=== PATIENT | female | born 1930 | race Caucasian/White ===

== ENCOUNTER 2017-10-27 20:43 | Inpatient (IN) | payer MEDICARE ==
[2017-10-28] MEDS ORDERED: HYDROcodone/Acetaminophen 10/325 mg Tablet PO PRN (00:59)
[2017-10-28] MEDS ORDERED: Gabapentin 400 MG CAP PO SCH (01:00)
[2017-10-28] MEDS ORDERED: Mag-Al 1200 mg/1200 mg/30 ML UDCUP PO PRN (08:15)
[2017-10-28] MEDS ORDERED: Ondansetron HCl/PF 4 MG/2 ML Vial IVP PRN ×2 (08:15→19:06)
[2017-10-28] MEDS ORDERED: Calcium Carbonate 500 MG ChewTAB PO PRN (08:15)
[2017-10-28] MEDS ORDERED: Bisacodyl 10 MG SUPP PR PRN (08:15)
[2017-10-28] MEDS ORDERED: Nitroglycerin 0.4 MG TAB (25 Tab Bottle) SL PRN (08:15)
[2017-10-28] MEDS ORDERED: Loratadine 10 MG TAB PO PRN (08:15)
[2017-10-28] MEDS ORDERED: Diabetic Tussin 200 MG/10 ML UDCUP PO PRN (08:15)
[2017-10-28] MEDS ORDERED: Senokot 8.6 MG TAB PO PRN ×2 (08:15)
[2017-10-28] MEDS ORDERED: Acetaminophen 325 MG TAB PO PRN (08:15)
[2017-10-28] MEDS ORDERED: Bisacodyl 5 MG TAB PO PRN ×2 (08:15)
[2017-10-28] MEDS ORDERED: Benzonatate 100 MG CAP PO PRN (08:15)
[2017-10-28] MEDS ORDERED: Sodium Chloride 0.9% 1,000 ML IV SCH (08:15)
[2017-10-28] MEDS ORDERED: Dextrose 5% in Water 1,000 ML IV PRN (08:19)
[2017-10-28] MEDS ORDERED: HumaLOG 300 UNITS/3 ML VIAL SC PRN ×2 (08:19)
[2017-10-28] MEDS ORDERED: Dextrose 50% Abboject 50 ML SYRINGE SLOW IVP PRN (08:19)
[2017-10-28 08:43] LABS: #Eosinphils 0.4 thou/uL (0.0-0.7); #Monocytes 0.7 thou/uL (0.11-0.59); #Neutrophils 2.3 thou/uL (1.40-6.50); %Basophils 0.8 % (0.0-1.0); %Eosinophils 6.5 % (0.0-10.0); %Lymphocytes 36.8 % (21.0-51.0); %Monocytes 13.1 % (0.0-10.0); %Neutrophils 42.8 % (42.0-75.0); Hemoglobin 11.3 g/dL (12.0-16.0); Mean Corpuscular HGB CONC 35.1 g/dL (32.0-36.0); Mean Corpuscular Hemoglobin 32.1 pg (27.0-31.0); Mean Corpuscular Volume 91.6 fL (78.0-98.0); Mean Platelet Volume 6.1 fL (7.4-10.4); Platelet Count 296 thou/uL (130-400); RBC Distribution Width 12.1 % (11.5-14.5); Red Blood Cell (RBC) Count 3.53 mill/uL (4.20-5.40); White Blood Cell (WBC) Count 5.4 thou/uL (4.8-10.8)
[2017-10-28] MEDS ORDERED: Non-Formulary Item 1 EACH (Gabapentin [Neurontin] 800 MG) PO SCH (09:00)
[2017-10-28] MEDS ORDERED: Famotidine/PF 20 mg/2ml Vial SLOW IVP SCH (09:00)
[2017-10-28 09:03] LABS: ALT (SGPT) 7 U/L (8-55); AST (SGOT) 12 U/L (5-34); Albumin 3.8 g/dL (3.4-4.8); Alkaline Phosphatase 45 U/L (40-150); Anion Gap 12 mmol/L (10-20); BUN (Urea Nitrogen) 9 mg/dL (9.8-20.1); Bilirubin, Total 0.6 mg/dL (0.2-1.2); Calc. Creatinine Clearance 61 mL/min (70-130); Calcium 8.6 mg/dL (7.8-10.44); Carbon Dioxide 27 mmol/L (23-31); Chloride 94 mmol/L (98-107); Estimated GFR-MDRD 75; Glucose 107 mg/dL (83-110); Lipase 10 U/L (8-78); Phosphorus 2.9 mg/dL (2.3-4.7); Potassium 4.1 mmol/L (3.5-5.1); Protein, Total 5.8 g/dL (6.0-8.3); Sodium 129 mmol/L (136-145)
[2017-10-28] MEDS ORDERED: Ketorolac Tromethamine 30 MG/ML VIAL IVP SCH (10:00)
--- NOTE | 2017-10-28 10:07 | HP ---
HISTORY OF PRESENT ILLNESS: Carolyn Desouza is an 86-year-old female, who lives independently in [facility], ambulates with a cane or walker about the house. She does have a history of sciatica. She has known that she has gallstones for many years, diagnosed during a workup of kidney problems in 2005. The patient has had intermittent pains, right upper quadrant; interscapular radiation for many years . She took a fall yesterday, was seen in [place], had a CAT scan of the abdomen and pelvis, because of tenderness in right upper quadrant, noting 2.4 cm dilated common bile duct with multiple gallston es. CT scan of the head was obtained, because of her fall, and her CAT scan of the head was normal. The patient is transferred for evaluation and admitted. She is noted to be hyponatremic, serum sodi um improved from 121 to 129. MEDICATIONS: Boniva once a month 150 mg, ProAir inhalation as needed, atenolol 50 mg a day, gabapent in 800 mg 3 times a day, hydrochlorothiazide 25 mg a day, lisinopril 40 mg a day, metformin 500 mg tw ice daily, omeprazole 20 mg once a day. PAST MEDICAL HISTORY: Hypertension; hyperlipidemia; low back pain, sciatica. PAST SURGICAL HISTORY: Appendectomy, uterine suspension, , partial hysterectomy without oop horectomy. She is up-to-date on her colonoscopies. FAMILY HISTORY: Noncontributory. SOCIAL HISTORY: [place] noncontributory. PHYSICAL EXAMINATION: VITAL SIGNS: Height 5 feet 7 inches, 151 pounds, 23 BMI. HEAD, EARS, EYES, NOSE, AND THROAT: Unremarkable. LUNGS: Clear to auscultation. CARDIAC: Regular rate and rhythm without murmur, rub, or gallop. ABDOMEN: Soft, tenderness in right upper quadrant with guarding. EXTREMITIES: Unremarkable. NEUROLOGICAL: Intact. No focal deficits. LYMPH: No lymphadenopathy in neck, groin, axillae, breast without masses. Palpable pedal pulses. N o ankle edema. LABORATORY DATA: Sodium 129, potassium 4.1, BUN 9, creatinine 0.74. Liver function tests are normal . Lipase is normal. White count 5, hemoglobin 9.3. ASSESSMENT AND PLAN: 1. Cholecystitis and cholelithiasis. I have recommended laparoscopic video cholecystectomy, cholang iograms, possible ERCP. Her liver function tests are normal. Common bile duct dilated. We will con urvashit Dr. Ishan Blunt in case ERCP is necessary. Risk of infection, bleeding, reoperation, open proc edure discussed. Risk of ERCP including pancreatitis, perforation, bleeding discussed. Questions an swered. 2. Hypertension. 3. Sciatica, chronic low back pain.
[2017-10-28] MEDS ORDERED: Acetaminophen 1,000 MG in Premix Bag 1 BAG IVPB SCH (10:15)
[2017-10-28] MEDS: Gabapentin 400 MG CAP PO SCH ×3 (10:16→20:19)
[2017-10-28] MEDS: Sodium Chloride 0.9% 1,000 ML IV SCH ×3 (10:31→20:20)
[2017-10-28 10:52] LABS: Bilirubin Negative (Negative); Blood, Urine Negative (Negative); Clarity CLEAR (Clear); Glucose, Urine (Dipstick) Negative (Negative); Leukocyte Negative (Negative); Nitrite Negative (Negative); Protein, Urine (Dipstick) Negative (Neg-Trace); Specific Gravity, Urine 1.008 (1.002-1.036); Urobilinogen 0.2 mg/dL (0.2-1.0); pH, Urine 7.5 (5.0-9.0)
[2017-10-28 10:58] LABS: Bacteria/HPF None Seen HPF (None Seen); Hyaline Casts/LPF 0-3 HYALINE CAST LPF (0-3 Hyaline); RBC/HPF 0-3 HPF (0-3); Squamous Epithelial None Seen HPF (0-3); WBC/HPF 0-3 HPF (0-3)
[2017-10-28] MEDS: Ipratropium Bromide 2.5 ml Neb NEB SCH ×2 (11:23→18:37)
--- NOTE | 2017-10-28 12:35 | HP ---
DATE OF ADMISSION: 10/28/2017 PRIMARY CARE PHYSICIAN: Out of town. CHIEF COMPLAINT: Fall. HISTORY OF PRESENT ILLNESS: Ms. Desouza is a very pleasant 86-year-old female without any significa nt past medical history, who presented to the emergency room after she has sustained a fall. She was brought in by EMS. History is mainly obtained by the patient herself and electronic medical records have been reviewed. She reports that she lives alone and is normally self-sufficient and uses a walker or cane sometimes to walk around. She, however, fell outside her house when trying to go back in. She did not lose an y consciousness. This was a purely mechanical fall. She denies any prodromal symptoms prior to the fall. She was on the ground for about 10 minutes as her medical alert device does not work very well outside the house. Neighbors found her and EMS was called and she was brought to the emergency room . Upon presentation, she was somewhat hypertensive with blood pressure 185/106. Otherwise, hemodynamic ally stable. She underwent general evaluation after a fall including radiological studies including a CT scan of the brain, which was unremarkable. A CT scan of the abdomen and pelvis was also done wi th contrast, which showed contracted gallbladder with sludge and stones with duct dilatation up to 2. 4 cm as well as choledocholithiasis. Her sodium was low at 121 and potassium of 4.3. All of this wo rkup was done at [facility]. She was transferred to our facility for further workup and care. Dr. Caldwell from General Surgery has been consulted by the emergency room physician for possib le cholecystectomy, and he has already evaluated the patient and she is scheduled to undergo surgery today. Her repeat sodium at our facility this morning is 129. Internal Medicine team has been grady d to admit this patient. PAST MEDICAL HISTORY: 1. Diabetes mellitus. 2. Hypertension. 3. Dyslipidemia. PAST SURGICAL HISTORY: section, hysterectomy. PSYCHIATRIC HISTORY: No anxiety, no depression. SOCIAL HISTORY: She lives by herself, but her family is involved in her care. She is independent wi th her ADLs and IADLs. No history of drug, tobacco, or alcohol abuse. FAMILY HISTORY: No significant family history of premature coronary artery disease or stroke. ALLERGIES: No known medication allergies. CURRENT MEDICATIONS: As follows, Boniva 150 mg every month, lisinopril 40 mg daily, omeprazole 20 mg daily. Incruse Ellipta 1 inhalation daily, metformin 500 mg p.o. b.i.d., hydrochlorothiazide 25 mg daily, [place] as needed, gabapentin 800 mg p.o. t.i.d., and Tenormin 50 mg daily. CODE STATUS: FULL CODE, discussed with the patient as well as her family present in the room. REVIEW OF SYSTEMS: A 12-point review of systems is done and is negative except for those mentioned i n the history and physical. LABORATORY EXAMINATION: Her CBC shows WBCs 5.4, hemoglobin 11.3, platelet count 296. Serum chemistr ies unremarkable except for sodium low at 129, chloride 94, otherwise unremarkable. Lipase is normal . Liver enzymes normal. Blood sugar 116. Urinalysis is negative for any leukocyte esterase, WBCs, protein, or glucose. Urinary specific gravity 1.008. PHYSICAL EXAMINATION: VITAL SIGNS: Most recent vital signs, temperature 98.3, pulse of 63, respirations 24, saturating 97% on 2 liters nasal cannula, blood pressure 151/68. GENERAL: In no acute distress, awake, alert, oriented x3, lying comfortably in bed, very pleasant. HEENT EXAMINATION: Mucous membranes are slightly dry. No oropharyngeal exudate or erythema. Head i s normocephalic, atraumatic. Pupils are equal, reactive to light and accommodation. Extraocular mov ement intact. NECK: Supple without any lymphadenopathy, JVD, or bruit. CHEST: Clear to auscultation without any wheezing, rales, or rhonchi. Rate and rhythm is regular wi thout any murmurs, rubs, or gallops. ABDOMEN: Soft, nontender, nondistended with positive bowel sounds, no hepatosplenomegaly. No right upper quadrant tenderness. EXTREMITIES: Free of any cyanosis, clubbing, or edema. NEUROLOGICAL EXAMINATION: Nonfocal. SKIN: Free of any rashes or bruises. Feel warm and dry to touch. PSYCHIATRIC: Normal affect. IMPRESSION AND PLAN: 1. Hyponatremia. This is likely secondary to hydrochlorothiazide, associated with mild dehydration. We will hold hydrochlorothiazide and resuscitate her with gentle IV fluids. We will repeat the lev el of the sodium later in the day and monitor for correction of 10 mg in 24 hours. 2. Choledocholithiasis. The patient has been scheduled to undergo laparoscopic cholecystectomy with possible ERCP. Dr. Caldwell has consulted Gastroenterology, Dr. Blunt, for the same reason. 3. Possible cholecystitis as per Dr. Caldwell. She will be started on empiric antibiotics. 4. History of hypertension. We will restart her home medications of atenolol and lisinopril at this time. Hold hydrochlorothiazide as above. 5. Diabetes mellitus, type 2, non-insulin dependent. We will hold the metformin, as she is n.p.o. t o avoid any renal failure or acidosis. We will treat her with insulin sliding scale with frequent Ac cu-Cheks. 6. Code status: FULL CODE, discussed with the patient. DISPOSITION: Ms. Desouza is currently being admitted to the hospital for hyponatremia and incidenta l finding of choledocholithiasis. Further management will depend upon her clinical course. She is c urrently on observation status.
[2017-10-28 14:15] LABS: Sodium 128 mmol/L (136-145)
[2017-10-28] MEDS ORDERED: PROPOFOL 200 MG/20 ML VIAL ONE (15:00)
[2017-10-28] MEDS ORDERED: Lidocaine 1% PF 5 ML VIAL ONE (15:00)
[2017-10-28] MEDS ORDERED: Ondansetron HCl/PF 4 MG/2 ML Vial ONE (15:00)
[2017-10-28] MEDS ORDERED: Glycopyrrolate 0.2 MG/ML 5 ML SYRINGE ONE (15:00)
--- NOTE | 2017-10-28 17:15 | RAD ---
FRONTAL VIEW CHEST: COMPARISON: Preoperative evaluation. FINDINGS: The lungs are mildly hyperinflated with interstitial prominence. No lobar consolidation, effusion, o r pneumothorax. The cardiac silhouette is normal in size. There is vascular calcification. An elec tronic lead overlies the thoracic spine. IMPRESSION: Chronic obstructive pulmonary disease. POS: [facility]
[2017-10-28] MEDS ORDERED: Bupivacaine HCl 0.5%/Epinephrine 1:200,000/PF 30 ml Vial ONE (17:50)
[2017-10-28] MEDS ORDERED: Iothalamate Meglumine 60% 50 ML VIAL FS ONE (17:50)
[2017-10-28] MEDS ORDERED: Fentanyl 100 MCG/2 ML VIAL ONE ×2 (17:54→19:05)
[2017-10-28] MEDS ORDERED: Ondansetron ODT 8 MG TAB PO PRN (18:56)
[2017-10-28] MEDS ORDERED: Acetaminophen 500 MG TAB PO PRN (18:56)
[2017-10-28] MEDS ORDERED: Ondansetron ODT 4 MG TAB PO PRN (18:56)
[2017-10-28] MEDS ORDERED: traMADol HCl 50 MG TAB PO PRN (18:56)
[2017-10-28] MEDS ORDERED: Promethazine HCl 25 MG/ML VIAL IM PRN (19:06)
[2017-10-28] MEDS ORDERED: Morphine Sulfate 2 MG/ML SYRINGE SLOW IVP PRN (19:06)
[2017-10-28] MEDS ORDERED: Promethazine HCl 25 MG/ML VIAL SLOW IVP PRN (19:06)
[2017-10-28] MEDS ORDERED: Indomethacin 50 MG SUPP PR SCH (19:45)
--- NOTE | 2017-10-28 20:16 | RAD ---
INTRAOPERATIVE CHOLANGIOGRAM THREE VIEWS: 10/28/2017 HISTORY: An 86-year-old female with biliary obstruction. COMPARISON: No prior ultrasounds, CTs, MRIs, or KUBs. FINDINGS: One of the images is a nondiagnostic image, centered over the thoracolumbar junction. The other two images demonstrate contrast injection into the cystic duct stump, demonstrating very severe dilation of the common bile duct and common hepatic duct, and moderate dilation of biliary radicles. There is an oval filling defect at the inferior aspect of the common bile duct, inferior to which there is a thin, short, contrast filled lumen representing the ampulla, distal to which there is contrast materi al in the duodenum. IMPRESSION: Biliary obstruction at the inferior aspect of the common bile duct, very close to the ampulla of Vate r, by a filling defect, which is presumed to represent choledocholithiasis, resulting in very severe dilation of the common bile duct and the common hepatic duct. POS: [facility]
[2017-10-28] MEDS: Famotidine 20 MG TAB PO SCH (20:19)
[2017-10-28] MEDS: Enoxaparin Sodium 40 MG/0.4 ML SYRINGE SC SCH (20:19)
--- NOTE | 2017-10-28 20:40 | CON ---
DATE OF CONSULTATION: 10/28/2017 REASON FOR CONSULTATION: Abnormal GI imaging. CONSULTING PHYSICIAN: Dr. Julio Caldwell. HISTORY OF PRESENT ILLNESS: The patient is an 86-year-old female with past medical history of hypert ension, hyperlipidemia, chronic lower back pain and sciatica, presenting with complaints of right upp er quadrant abdominal pain. She states that she was in her usual state of health until earlier today when she sustained a fall outside her house that prompted her to call EMS and medical evaluation in the [place] [facility]. During the evaluation in the ER, she had a CT scan of the abdomen and pelvis whic h showed a contracted gallbladder with stones and sludge as well as significant common bile duct dila tion up to 2.4 cm as well as choledocholithiasis (this was done at the [facility]). She was subsequently transferred to [facility] for further evaluation. Upon interviewing the p atient today, she said that she had been having intermittent right upper quadrant abdominal pain that has been present for the last 2-3 months. The pain was characterized as sharp/"not like" in nature, was nonradiating, intermittent and would reach a severity of 4/10. The abdominal pain that she had would be made worse with not having a bowel movement, better with actually having a bowel movement. When she did suffer the pain, it would happen around 2 times per month and lasts for anywhere between 2-24 hours in duration. She also endorses one solid bowel movement every 4-5 days for which she rou tinely takes Milk of Magnesia to facilitate having a bowel movement. When she does have a bowel move ment, it does require intermittent straining as well as pressure to the abdomen to facilitate defecat ion. Currently, she denies any nausea, vomiting, fevers, chills, shortness of breath, abdominal pain , dysphagia, odynophagia, jaundice or GI bleeding. Of note, she states that she was evaluated in 2005 at both [facility] and [facility] in [place], [place], in relation to "pancreas problems and enlarged tubing system." At that time, she s aid that she underwent both upper endoscopy as well as possible endoscopic ultrasound in relation to these findings. She cannot remember the results of these findings, but it was recommended that she r epeat her imaging every 1-2 years. REVIEW OF SYSTEMS: A 10-category review of systems was obtained with all responses negative except f or the pertinent positives as listed in the HPI. PAST MEDICAL HISTORY: As per HPI. PAST SURGICAL HISTORY: section, hysterectomy, appendectomy, uterine suspension. FAMILY HISTORY: Denies any GI malignancies. SOCIAL HISTORY: Denies any tobacco, alcohol or illicit drug use. OUTPATIENT MEDICATIONS: Reviewed. ALLERGIES: No known drug allergies. PHYSICAL EXAMINATION: VITAL SIGNS: Temperature 97.5, pulse 67, blood pressure 150/72, respiratory rate 24, satting 94% on 2 liters nasal cannula. GENERAL: The patient is lying in bed, in no acute distress. Alert and oriented x4. NECK: Supple. No JVD noted. CARDIOVASCULAR: Regular rate and rhythm with no discernible murmurs, gallops or rubs. RESPIRATORY: Clear to auscultation bilaterally with no discernible wheezes or rales. ABDOMEN: Normoactive bowel sounds, soft, nondistended. Tenderness to palpation in the right upper q uadrant. EXTREMITIES: No cyanosis, clubbing or edema. LABORATORY DATA: CBC with a white blood cell count of 5.4, hemoglobin 11.3, hematocrit 32.3, platele ts 296. Chemistry with a sodium of 129, potassium 4.1, chloride 94, CO2 of 27, BUN 9, creatinine 0.7 4, glucose 107, AST 12, ALT 7, alkaline phosphatase 45, total bilirubin 0.6, albumin 3.8, lipase 10. IMAGING DATA: CT of the abdomen and pelvis obtained today in [place], [place], showed moderate intra and extrahepatic ductal dilatation with the extrahepatic duct measuring 2.4 cm and multiple common du ct stones representing choledocholithiasis. ASSESSMENT AND PLAN: The patient is an 86-year-old female with past medical history of hypertension, hyperlipidemia, chronic lower back pain, diabetes, sciatica and possible enlarged common bile duct i n the past, presenting with right upper quadrant abdominal pain and findings concerning for choledoch olithiasis. Choledocholithiasis: The patient is presenting with a history of intermittent right upper quadrant a bdominal pain that has been present for the last 2-3 months, characterized as a sharp stabbing type s ensation. The pain was worse with not having a bowel movement and better with having a bowel movemen t. Upon evaluation in the ER earlier today, imaging is showing the presence of a 2.4 cm ductal dilat ion of the common bile duct concerning for obstruction and choledocholithiasis, which was also reflec elieser on the imaging. However, her labs are not currently reflective of an obstructive type process no r is her clinical status indicative of this diagnosis either. Upon further interview with the patien bibi, she also endorses that she has had multiple endoscopies in the past as part of a workup related to a pancreatic origin or enlarged tubing system in 2005 at [facility] in [place] and [facility] in [place]. At this point, the differential could include choledocholithiasis, choledochal c yst, cholangiocarcinoma, anatomical variant and/or extra biliary malignancy such as a pancreatic neop lasm (much less likely). RECOMMENDATIONS: 1. We would obtain records from both [facility] and [facility] for review o f records pertaining to prior endoscopic evaluation of the pancreas and the biliary system at that ti ca. 2. We would have the patient proceed with laparoscopic cholecystectomy given the presence of cholecy stitis and numerous gallstones with intraoperative cholangiogram to confirm the presence of choledoch olithiasis. 3. If the patient is confirmed to have choledocholithiasis, we would plan for ERCP tomorrow for mike rebeca of the ductal stones. 4. Agree with broad spectrum antibiotics for treatment of possible choledocholithiasis. We will continue to follow. Please call with any additional questions.
[2017-10-29] MEDS: traMADol HCl 50 MG TAB PO PRN ×2 (00:01→04:54)
--- NOTE | 2017-10-29 00:10 | OP ---
DATE OF PROCEDURE: 10/28/2017 PREOPERATIVE DIAGNOSES: Choledocholithiasis, cholecystitis, cholelithiasis. POSTOPERATIVE DIAGNOSES: Choledocholithiasis, cholecystitis, cholelithiasis. PROCEDURE: Laparoscopic video cholecystectomy. SURGEON: Julio Caldwell MD ANESTHESIA: General. Local 0.5% Marcaine with epinephrine, 30 mL total volume used. Note, common b ile duct 2.4 cm diameter. Normal liver function test. History of biliary colic. PROCEDURE IN DETAIL: Patient was taken to the operating room under general anesthesia, abdomen was p repared with ChloraPrep, draped in routine fashion. Local anesthetic infiltrated into the skin and s ubcutaneous tissue about each port site. Infraumbilical incision was made. Pneumoperitoneum to 15 m mHg obtained with Veress needle, placing with a 5 port and video laparoscope inserted. Right subxiph oid incision was made and a 11 port placed. Right subcostal incision was made and 5 mm ports p laced. Fundus of gallbladder grasped at cephalad. Liver appeared to be normal. dissected tino e. Critical view obtained. Cystic artery double clipped proximally and cystic ducts then clipped on the gallbladder side. An opening made in the cystic duct and cholangiogram was obtained using fluor oscopy revealing markedly dilated common hepatic, common bile ducts with delayed emptying into the du odenum. There were filling defects noted. Eventually, contrast did empty into the duodenum with uche ling defects noted. Cholangiocath removed. Cystic duct stump doubly clipped. Cystic artery and aaron t divided. The gallbladder was dissected free from liver bed obtaining good hemostasis prior to divi daylin of final peritoneal attachments. Gallbladder and contents removed, submitted to Pathology. Goo d hemostasis ensured with cautery and clips. The patient tolerated the procedure well. Pneumoperito neum and irrigant evacuated. All instruments were removed and all skin incisions were approximated w ith interrupted subdermal 4-0 Monocryl and DermaGlue applied.
[2017-10-29] MEDS: Ipratropium Bromide 2.5 ml Neb NEB SCH ×5 (01:22→23:48)
[2017-10-29] MEDS: Sodium Chloride 0.9% 1,000 ML IV SCH ×2 (02:17→11:37)
[2017-10-29] MEDS ORDERED: Simethicone Chewable 80 MG TAB PO PRN (04:14)
[2017-10-29 04:58] VITALS: BMI 25.4
[2017-10-29 05:00] LABS: #Basophils 0.1 thou/uL (0.0-0.2); #Lymphocytes 1.1 thou/uL (1.20-3.40); #Monocytes 0.9 thou/uL (0.11-0.59); #Neutrophils 8.9 thou/uL (1.40-6.50); %Basophils 0.9 % (0.0-1.0); %Eosinophils 0.2 % (0.0-10.0); %Lymphocytes 9.7 % (21.0-51.0); %Monocytes 8.3 % (0.0-10.0); %Neutrophils 80.9 % (42.0-75.0); Hemoglobin 11.8 g/dL (12.0-16.0); Mean Corpuscular HGB CONC 33.8 g/dL (32.0-36.0); Mean Platelet Volume 6.7 fL (7.4-10.4); Platelet Count 299 thou/uL (130-400); Red Blood Cell (RBC) Count 3.81 mill/uL (4.20-5.40)
[2017-10-29 05:22] LABS: ALT (SGPT) 35 U/L (8-55); AST (SGOT) 48 U/L (5-34); Albumin 3.9 g/dL (3.4-4.8); Alkaline Phosphatase 46 U/L (40-150); Anion Gap 15 mmol/L (10-20); BUN (Urea Nitrogen) 8 mg/dL (9.8-20.1); Bilirubin, Total 0.8 mg/dL (0.2-1.2); Calc. Creatinine Clearance 65 mL/min (70-130); Calcium 8.8 mg/dL (7.8-10.44); Carbon Dioxide 24 mmol/L (23-31); Chloride 96 mmol/L (98-107); Estimated GFR-MDRD 80; Globulin 2.2 g/dL (2.4-3.5); Glucose 125 mg/dL (83-110); Potassium 3.8 mmol/L (3.5-5.1); Protein, Total 6.1 g/dL (6.0-8.3); Sodium 131 mmol/L (136-145)
[2017-10-29] MEDS ORDERED: Lidocaine 1% PF 5 ML VIAL ONE (09:28)
[2017-10-29] MEDS ORDERED: PROPOFOL 200 MG/20 ML VIAL ONE (09:28)
[2017-10-29] MEDS ORDERED: PHENYLEPHRINE-NS 100 MCG/ML 10 ML SYRINGE ONE (09:28)
[2017-10-29] MEDS: Gabapentin 400 MG CAP PO SCH ×3 (11:37→21:05)
[2017-10-29] MEDS: Famotidine 20 MG TAB PO SCH ×2 (11:37→21:18)
--- NOTE | 2017-10-29 13:40 | PDOC.PN ---
- Subjective Encounter Start Date: 10/29/17 Encounter Start Time: 13:39 Subjective: severe RUQ pain - Objective Resuscitation Status: Resuscitation Status FULL:Full Resuscitation MAR Reviewed: Yes Vital Signs & Weight: Vital Signs (12 hours) Temp Pulse Resp BP BP Pulse Ox 10/29/17 08:00 98.9 F 81 16 10/29/17 07:31 98.9 F 81 16 156/71 H 91 L 10/29/17 06:43 96 10/29/17 06:41 77 16 96 10/29/17 04:54 98 F 80 20 171/77 H 91 L Weight Weight 152 lb 11.2 oz I&O: 10/28/17 10/29/17 10/30/17 06:59 06:59 06:59 Intake Total 210 200 Balance 210 200 Result Diagrams: 10/29/17 04:23 10/29/17 04:23 Additional Labs: Accuchecks 10/29/17 06:05 POC Glucose 124 H Phys Exam - Physical Examination Neck: no JVD Respiratory: clear to auscultation bilateral Cardiovascular: RRR, no significant murmur tender PUQ, lap candace incision sites, decreased BS Musculoskeletal: no edema Dx/Plan (1) Acute cholecystitis due to biliary calculus Code(s): K80.00 - CALCULUS OF GALLBLADDER W ACUTE CHOLECYST W/O OBSTRUCTION Status: Acute (2) HTN (hypertension) Code(s): I10 - ESSENTIAL (PRIMARY) HYPERTENSION Status: Acute Qualifiers: Hypertension type: essential hypertension Qualified Code(s): I10 - Essential (primary) hypertension (3) Common bile duct calculi Code(s): K80.50 - CALCULUS OF BILE DUCT W/O CHOLANGITIS OR CHOLECYST W/O OBST Status: Acute (4) Hyponatremia Code(s): E87.1 - HYPO-OSMOLALITY AND HYPONATREMIA Status: Acute - Plan iv fluids -: analgesia, morphine iv -: ERCP planned today * .
[2017-10-29] MEDS ORDERED: Fentanyl 100 MCG/2 ML VIAL ONE (15:49)
[2017-10-29] MEDS ORDERED: Iothalamate Meglumine 60% 50 ML VIAL FS ONE (16:04)
[2017-10-29] MEDS ORDERED: Indomethacin 50 MG SUPP ONE (16:04)
[2017-10-29] MEDS ORDERED: Promethazine HCl 25 MG/ML VIAL IM PRN (19:17)
[2017-10-29] MEDS ORDERED: Promethazine HCl 25 MG/ML VIAL SLOW IVP PRN (19:17)
[2017-10-29] MEDS ORDERED: Ondansetron HCl/PF 4 MG/2 ML Vial IVP PRN (19:17)
--- NOTE | 2017-10-29 19:35 | PRG ---
DATE OF SERVICE: 10/29/2017 SUBJECTIVE: Ms. Desouza is doing well today. She has some postoperative pain, mainly right upper q uadrant, morphine has been ordered and she is n.p.o., awaiting ERCP. LABORATORY DATA: This morning reveal white count 11, hemoglobin 11.8. Sodium 131, [address] A [address], ALT essentially normal, bilirubin normal. OBJECTIVE: LUNGS: Clear to auscultation. CARDIAC: Regular rate and rhythm without murmur or gallop. ABDOMEN: Soft, postoperative tenderness. ASSESSMENT AND PLAN: Choledocholithiasis, 2.4 cm bile duct markedly dilated. Await ERCP by Gastroen terology. Advance diet, post procedure.
[2017-10-29] MEDS: Enoxaparin Sodium 40 MG/0.4 ML SYRINGE SC SCH (20:54)
--- NOTE | 2017-10-29 23:21 | OP ---
DATE OF PROCEDURE: 10/29/2017 GI ENDOSCOPY NOTE SURGEONS: 1. Robin Garcia M.D. 2. Ishan Blunt MD CHARTER REPRESENTATIVE SURGEON: None. INDICATION: Choledocholithiasis, based on positive intraoperative cholangiogram. MEDICATIONS: 1. See anesthesia record. 2. Indomethacin 100 mg per rectum. FINDINGS: After discussion of the risks, benefits and alternatives of the procedure, informed consen t was obtained and witnessed. Pre-endoscopic cardiopulmonary examination was satisfactory. Timeout was performed before sedation was achieved. Sedation was achieved with anesthesia assistance in the endoscopy unit. The patient was placed in the semiprone position, intubated and sedated on the fluor oscopy table. A Pentax adult side-viewing duodenoscope was inserted into the mouth and passed beyond the esophagus and stomach and then into the second portion of the duodenum. The ampulla was brought into view with the endoscope in the short position. Using a triple-lumen dome tip sphincterotome an d a 0.035 guidewire, we attempted to selectively cannulate the common bile duct. Cannulation was pete te difficult. At one point, the pancreatic duct was cannulated, a very small amount of contrast dye was injected into the pancreatic duct for localization, and the pancreatic duct was found to be quite tortuous. Eventually, we were able to successfully cannulate the common bile duct and the wire was passed up into the left intrahepatic duct system. Cholangiogram was then performed. This showed a d ilated common bile duct with multiple mobile stones of various sizes within the common bile duct. At this point, a generous biliary sphincterotomy was performed. There was a small amount of bleeding f rom the sphincterotomy site during sphincterotomy, but this had stopped completely by the end of the procedure. We then used a 15-18 mm extraction balloon, we passed it up the common bile duct and mult iple passes were made with the balloon partially and fully inflated. In this fashion, we were able t o extract three large yellow-pigmented gallstones from the common bile duct. After multiple sweeps a nd extraction of the stones, occlusion cholangiogram was performed. Due to the large caliber of the duct, which was greater in diameter even then the 18-mm balloon, we were unable to get great occlusio n cholangiogram images, but certainly there was no perceived residual filling defect within the commo n bile duct. Working apparatus was then completely withdrawn. Postprocedure fluoroscopic images dem onstrated no retroperitoneal or subdiaphragmatic free air. The endoscope was completely withdrawn, a nd the patient allowed to recover. The patient tolerated the procedure well. There were no immediat e post-procedure complications. IMPRESSION: Choledocholithiasis, now status post successful endoscopic retrograde cholangiopancreato graphy with biliary sphincterotomy and balloon extraction of multiple common bile duct stones. RECOMMENDATIONS: 1. Monitor for potential complications including post-ERCP pancreatitis. 2. Liquid diet for tonight, advance diet as tolerated tomorrow if the patient is doing well.
[2017-10-30] MEDS: Sodium Chloride 0.9% 1,000 ML IV SCH ×2 (01:10→11:07)
[2017-10-30] MEDS: Ipratropium Bromide 2.5 ml Neb NEB SCH ×2 (05:57→11:31)
[2017-10-30] MEDS: Gabapentin 400 MG CAP PO SCH (08:16)
[2017-10-30] MEDS: Famotidine 20 MG TAB PO SCH (08:16)
[2017-10-30 08:38] LABS: ALT (SGPT) 27 U/L (8-55); AST (SGOT) 28 U/L (5-34); Albumin 3.7 g/dL (3.4-4.8); Alkaline Phosphatase 46 U/L (40-150); Anion Gap 14 mmol/L (10-20); BUN (Urea Nitrogen) 6 mg/dL (9.8-20.1); Bilirubin, Total 0.7 mg/dL (0.2-1.2); Calc. Creatinine Clearance 69 mL/min (70-130); Carbon Dioxide 22 mmol/L (23-31); Chloride 98 mmol/L (98-107); Estimated GFR-MDRD 85; Globulin 2.1 g/dL (2.4-3.5); Glucose 160 mg/dL (83-110); Potassium 3.2 mmol/L (3.5-5.1); Protein, Total 5.8 g/dL (6.0-8.3); Sodium 131 mmol/L (136-145)
[2017-10-30 11:08] VITALS: BP 121/61; TEMP 98.5
--- NOTE | 2017-10-30 13:22 | PRG ---
DATE OF SERVICE: 10/30/2017 REASON FOR CONSULTATION: Choledocholithiasis. SUBJECTIVE: The patient states that she is doing well this morning with no increased abdominal pain after ERCP yesterday. She does have some mild abdominal tenderness in the right upper quadrant, but feels that this may be more due to the laparoscopic cholecystectomy. Currently, denies any nausea, v omiting, fevers, chills, hematemesis, melena, hematochezia, odynophagia, dysphagia. OBJECTIVE: VITAL SIGNS: Temperature 98.5, pulse 81, blood pressure 121/61, respiratory rate 18, satting 93% on room air. GENERAL: The patient is lying in bed in no acute distress. Alert and oriented x4. CARDIOVASCULAR: Regular rate and rhythm. RESPIRATORY: Clear to auscultation bilaterally. ABDOMEN: Normoactive bowel sounds, soft, nondistended. Mild tenderness to palpation in the right up per quadrant. EXTREMITIES: No cyanosis, clubbing or edema. LABORATORY DATA: Chemistry with a sodium of 131, potassium 3.2, chloride 98, CO2 22, BUN 6, creatini ne 0.66, glucose 160, AST 28, ALT 27, alkaline phosphatase 46, total bilirubin 0.7. IMAGING DATA: ERCP performed on 10/29/2017 showed two yellow appearing stones within the common bile duct measuring approximately 5 and 7 mm in diameter. Both were successfully removed with successive balloon sweep after sphincterotomy. ASSESSMENT AND PLAN: The patient is an 86-year-old female with past medical history of hypertension, hyperlipidemia, chronic low back pain, diabetes, sciatica and possible chronically enlarged common b ile duct presenting with right upper quadrant abdominal pain and findings consistent with choledochol ithiasis. Choledocholithiasis: The patient initially presented with a history of intermittent right upper quad rant abdominal pain that have been present for the last 2-3 months. Upon evaluation in the ER, she w as noted to have a common bile duct measuring 2.4 cm. She ultimately underwent laparoscopic cholecys tectomy with intraoperative cholangiogram showing the presence of filling defects concerning for chol edocholithiasis. She underwent ERCP on 10/29/2017 with the findings of two medium to large size gall stones that were successfully removed with sphincterotomy and balloon extraction. Today, she endorse s mild abdominal pain, but not consistent with pancreatitis and her LFTs have normalized completely. 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 RECOMMENDATIONS: 1. We would attempt to obtain records from prior hospitalizations for evaluation related to dilated common bile duct and possible choledochal cyst. 2. Successful stone extraction via ERCP yesterday and lack of post- ERCP pancreatitis, no further fo llowup is necessary. 3. Follow up with the General Surgery Service for the postoperative period as scheduled. From a GI standpoint, this patient is stable enough to be discharged. We will sign off at this time. Please call with any additional questions.
--- NOTE | 2017-10-30 13:54 | DIS ---
DATE OF ADMISSION: 10/28/2017 DATE OF DISCHARGE: 10/30/2017 [facility] call admission for Kimberly. DISPOSITION: Discharged home. FINAL DIAGNOSES: 1. Acute cholecystitis of the gallbladder, status post laparoscopic cholecystectomy. 2. Calculus of the common bile duct, status post endoscopic retrograde cholangiopancreatography and removal. 3. Hypertension. 4. Hyponatremia. 5. Diabetes mellitus, type 2. DISCHARGE MEDICATIONS: The same as her admitting medications. Metformin 500 mg twice a day, Incruse Ellipta 1 inhalation daily, omeprazole 20 mg a day, lisinopril 40 mg a day, Boniva 150 mg p.o. every 30 days, hydrochlorothiazide 25 mg a day, hydrocodone 10/325 one every 6 hours p.r.n., gabapentin 80 0 mg 3 times a day, atenolol 50 mg a day. ALLERGIES: SULFA. CODE STATUS: FULL. PENDING AT THE TIME OF DISCHARGE: Surgical specimen from the gallbladder 10/29/2017. HOSPITAL COURSE: The patient admitted to the hospital by [facility] physicians. She presents with interm ittent pain, right upper quadrant, intrascapular radiation. CAT scan of the abdomen revealed 2.4 cm dilated common duct with multiple stones, cholecystitis. She had initial serum sodium of 121. This is improved to 131. She was seen by Dr. Julio Caldwell, and on 10/28/2017, underwent laparoscopic ch olecystectomy. The next day, 10/29/2017, she underwent endoscopic retrograde cholangiopancreatography with removal of common duct stones. She is currently asymptomatic on a diet, benign abdomen. Vital signs are stable. [facility] 121[facility], pulse 81, respiratory rate is 18, temperature 98.5. Her initial CBC showed a white count of 5.4, followup with 11.0. Initial hemoglobin 11.3, followup 11.8. As mentioned bef ore, her initial sodium was 121, it came up to 131; potassium 3.8; creatinine 0.7. Blood sugars efrem ined in the 100-200 range. She is being discharged for followup by her PCP in 1 week. Followup is t o be arranged with Dr. Caldwell and Dr. Garcia. CONDITION AT THE TIME OF DISCHARGE: Was excellent with a normal cardiorespiratory exam and a benign abdomen.
--- NOTE | 2017-10-30 17:41 | PRG ---
DATE OF SERVICE: 10/30/2017 SUBJECTIVE: Carolyn Desouza is doing well today. She is tolerating her diet. She is without complai nt. She hopes to go home today. OBJECTIVE: LUNGS: Clear to auscultation. CARDIAC: Regular rate and rhythm without murmur or gallop. ABDOMEN: Soft, nontender, good bowel sounds. ASSESSMENT AND PLAN: The patient is tolerating her diet. Agree with discharge home. Follow up in m y office in 2-3 weeks. Diet and activity as tolerated.
== END 2017-10-30 14:45 | disposition home or self-care (01) | DRG 418 ==
LOC: ERS 20:43 → 2SW 21:40 → OBSVTOIN 10-29 15:57 → T4-B 10-29 20:37
PROVIDERS: ADMIT Hospitalist; ATTEND Hospitalist
PROC: 0FT44ZZ Resection of Gallbladder, Percutaneous Endoscopic Approach (ICD-10-PCS; principal; 2017-10-28)
PROC: BF101ZZ Fluoroscopy of Bile Ducts using Low Osmolar Contrast (ICD-10-PCS; 2017-10-28)
PROC: 0FC98ZZ Extirpation of Matter from Common Bile Duct, Via Natural or Artificial Opening Endoscopic (ICD-10-PCS; 2017-10-29)
PROC: 0F798ZZ Dilation of Common Bile Duct, Via Natural or Artificial Opening Endoscopic (ICD-10-PCS; 2017-10-29)
PROC: BF101ZZ Fluoroscopy of Bile Ducts using Low Osmolar Contrast (ICD-10-PCS; 2017-10-29)
DX: K80.62 Calculus of gallbladder and bile duct with acute cholecystitis without obstruction (principal); E87.1 Hypo-osmolality and hyponatremia; E11.9 Type 2 diabetes mellitus without complications; I10 Essential (primary) hypertension; E78.5 Hyperlipidemia, unspecified; M54.40 Lumbago with sciatica, unspecified side; G89.29 Other chronic pain; Z88.2 Allergy status to sulfonamides; Z79.84 Long term (current) use of oral hypoglycemic drugs
CPT/HCPCS: 36415; 36416; 47532; 71045; 74330; 80053; 81001; 82550; 83690; 83735; 83930; 83935; 84100; 85025; 88304; 93005; 93010; 94640; 99285; J0131; J0670; J1610; J1650; J1885; J1956; J2001; J2270; J2405; J2704; J3010; J7644; Q9961; S0028

== ENCOUNTER 2018-09-16 07:39 | Inpatient (IN) | payer MEDICARE ==
--- NOTE | 2018-09-16 08:17 | RAD ---
EXAM: CHEST ONE VIEW HISTORY: Small bowel obstruction. Abdominal pain for 24 hours. COMPARISON: 09/16/2018 at 0649 hours. FINDINGS: There has been interval placement of a nasogastric tube which courses into the left upper quadrant wi th tip overlying the expected location of the gastric fundus. Cardiac silhouette and pulmonary vasculature are within normal limits. Linear densities are present at the left lung base which may be related to mild scarring or atelectasis. Vascular calcifications are seen in thoracic aorta. Dorsal column stimulator leads again overlie the lower thoracic spine. IMPRESSION: 1. Interval placement of a nasogastric tube with tip overlying the expected location of the gastric f undus. 2. Probable mild chronic lung changes.
[2018-09-16] MEDS ORDERED: HumaLOG 300 UNITS/3 ML VIAL SC PRN (08:31)
[2018-09-16] MEDS ORDERED: Morphine 2 MG/ML SYRINGE SLOW IVP PRN (08:31)
[2018-09-16] MEDS ORDERED: hydrALAZINE 20 MG/ML VIAL SLOW IVP PRN (08:31)
[2018-09-16] MEDS ORDERED: Ondansetron ODT 4 MG TAB PO PRN (08:31)
[2018-09-16] MEDS ORDERED: Dextrose 50% Abboject 50 ML SYRINGE SLOW IVP PRN (08:31)
[2018-09-16] MEDS ORDERED: Dextrose 5% in Water 1,000 ML IV PRN (08:31)
[2018-09-16] MEDS ORDERED: Sodium Chloride 0.9% (PF) 10 ML VIAL FS PRN (09:37)
[2018-09-16 10:31] VITALS: BMI 26.4
--- NOTE | 2018-09-16 10:53 | RAD ---
KUB: HISTORY: NG tube placement. FINDINGS: This examination only included the upper abdomen and shows an NG tube to be in the fundus of the stom ach. IMPRESSION: Nasogastric tube with its tip in the fundus of the stomach. POS: TPC
--- NOTE | 2018-09-16 11:09 | HP ---
HISTORY OF PRESENT ILLNESS: Carolyn Desouza is an 87-year-old female patient presents to the emergency room. I know her from last year when she underwent laparoscopic cholecystectomy, positive cholangiograms and subsequent ERCP. The patient is up to date on her colonoscopies. She has had other multiple surgeries as listed below. Since July, she states her abdomen has been having some cramps and mild abdominal pain. She has noted some decreased bowel function. In the last 48 hours, she has had increased abdominal distention, nausea and vomiting. She had vomited this morning. Last bowel movement yesterday morning. No flatus since that time. She presents to the emergency room. CAT scan obtained revealed changes consistent with a bowel obstruction. NG tube has been placed. An x-ray ordered for confirmation not yet obtained. NG tube is to suction. Her laboratories are normal. CAT scan reveals findings consistent with a partial bowel obstruction. She has dilated proximal loops, transition zone. ALLERGIES: SULFA. SOCIAL HISTORY: Tobacco, none. Alcohol, none. The patient lives alone, [place]. Her family lives nearby. Although, she drives short distances. She is ambulatory with some assistance. She takes care of her own affairs. MEDICATIONS: At home: 1. Metformin 500 b.i.d. 2. Incruse Ellipta inhaler daily. 3. Omeprazole 20 mg a day. 4. Lisinopril 40 mg a day. 5. Boniva 150 mg p.o. q.30 days. 6. Hydrochlorothiazide 25 mg daily. 7. [place] 10/325 p.r.n. pain, chronic low back pain. 8. Gabapentin 800 mg t.i.d. 9. Atenolol 50 mg p.o. daily. PAST SURGICAL HISTORY: October 2017, laparoscopic cholecystectomy followed by ERCP with sphincterotomy, hysterectomy, bladder sling, urine suspension, C-sections prior to that, up to date on her colonoscopy. PAST MEDICAL HISTORY: Hypertension; hyperlipidemia; low back pain; chronic use of hydrocodone; history of lumbar surgery, Dr. Jaison Hamm; mild emphysema. PHYSICAL EXAMINATION: VITAL SIGNS: Blood pressure 120/69, respiratory rate 18, heart rate 70. HEAD, EARS, EYES, NOSE, AND THROAT: Unremarkable. LUNGS: Clear to auscultation. CARDIAC: Regular rate and rhythm without murmur or gallop. ABDOMEN: Soft. Mild distended. Mild tympany. No evident hernias. EXTREMITIES: Unremarkable. LABORATORY DATA: CBC, basic met, normal except for sodium 134, chronic. ASSESSMENT AND PLAN: 1. Bowel obstruction. Chronicity of this since may suggest that she may need operative intervention. However, at this time, we will place an NG tube to suction, observe her overnight, obtain a small-bowel follow-through tomorrow and make further recommendations based on clinical course. If she does need operative intervention, laparoscopy could be performed. 2. Mild emphysema. Tobacco cessation in mid . 3. She had a cardiac stress test 8 or 9 years ago with a cardiac catheterization that was normal with minimal disease. 4. Hypertension. 5. Chronic low back pain with prior lumbar surgery, on sharing.it. Job ID: [id number]
[2018-09-16] MEDS: Sodium Chloride 0.9% 1,000 ML IV SCH ×3 (12:40→20:06)
[2018-09-16] MEDS: Pantoprazole 40 MG VIAL IVP SCH (12:41)
[2018-09-16] MEDS: Morphine 4 MG/ML VIAL SLOW IVP PRN ×3 (14:17→23:41)
[2018-09-16] MEDS: Ondansetron PF 4 MG/2 ML Vial IVP PRN ×2 (14:17→20:08)
[2018-09-16] MEDS ORDERED: Chloraseptic Spray 180 ml Bottle PO PRN (19:29)
[2018-09-16] MEDS: Enoxaparin Sodium 40 MG/0.4 ML SYRINGE SC SCH (19:58)
--- NOTE | 2018-09-16 22:08 | HP ---
ADDENDUM: Ms. Desouza has a spinal stimulator apparatus in her right lower back flank area. She has had this replaced in March by Dr. Carlos Brizuela in [facility], . It has been noted by the nurses and called to my attention that she has an opening in the incision with exposed stimulator apparatus. Bedside evaluation reveals that to be true. There is no cellulitis. It is just that there is an opening in the wound with exposed underlying pain stimulator. Plan is to discuss with Dr. Brizuela and it probably will require a movement as this foreign body is infected and exposed. Job ID: [id number]
[2018-09-17] MEDS: Sodium Chloride 0.9% 1,000 ML IV SCH ×3 (04:21→20:51)
[2018-09-17 07:19] LABS: #Lymphocytes 1.8 thou/uL (1.20-3.40); #Monocytes 1.1 thou/uL (0.11-0.59); #Neutrophils 5.7 thou/uL (1.40-6.50); %Basophils 0.2 % (0.0-1.0); %Eosinophils 0.4 % (0.0-10.0); %Lymphocytes 20.7 % (21.0-51.0); %Monocytes 12.2 % (0.0-10.0); %Neutrophils 66.5 % (42.0-75.0); Hemoglobin 12.9 g/dL (12.0-16.0); Mean Corpuscular HGB CONC 32.8 g/dL (32.0-36.0); Mean Corpuscular Hemoglobin 28.8 pg (27.0-31.0); Platelet Count 343 thou/uL (130-400); RBC Distribution Width 12.8 % (11.5-14.5); Red Blood Cell (RBC) Count 4.49 mill/uL (4.20-5.40); White Blood Cell (WBC) Count 8.6 thou/uL (4.8-10.8)
[2018-09-17 07:28] LABS: Anion Gap 11 mmol/L (10-20); BUN (Urea Nitrogen) 10 mg/dL (9.8-20.1); Calc. Creatinine Clearance 60 mL/min (70-130); Calcium 9.4 mg/dL (7.8-10.44); Carbon Dioxide 31 mmol/L (23-31); Chloride 95 mmol/L (98-107); Estimated GFR-MDRD 76; Glucose 135 mg/dL (83-110); Potassium 3.9 mmol/L (3.5-5.1); Sodium 133 mmol/L (136-145)
--- NOTE | 2018-09-17 08:32 | RAD ---
Exam: Single view of the chest and 2 views of the abdomen HISTORY: Small bowel obstruction COMPARISON: CT abdomen/pelvis 09/16/2018 FINDINGS: 2 views of the abdomen and a single view the chest shows multiple air-fluid levels seen on upright examination within small bowel. Air is seen distally within the rectum. An NG tube is seen in the stomach. A spinal stimulation device is seen. The cardiomediastinal silhouette is normal in si ze. There appear to be small bilateral pleural effusions. Atherosclerotic calcifications are seen in the aorta. IMPRESSION: 1. Multiple air-fluid levels are secondary to bowel obstruction. This correlates with the finding see n on CT 2. Small bilateral pleural effusions
[2018-09-17] MEDS ORDERED: MD-Gastroview 120 ML BOT ONE (09:42)
[2018-09-17] MEDS: Morphine 4 MG/ML VIAL SLOW IVP PRN ×4 (10:37→21:18)
[2018-09-17] MEDS: Ondansetron PF 4 MG/2 ML Vial IVP PRN (10:38)
[2018-09-17] MEDS: Pantoprazole 40 MG VIAL IVP SCH (13:22)
--- NOTE | 2018-09-17 13:31 | RAD ---
EXAM: Small bowel follow-through HISTORY: Small bowel obstruction COMPARISON: CT abdomen/pelvis 09/16/2018 FINDINGS: A Gastrografin small bowel follow-through was performed. Diffuse enlargement of small bowel loops is seen consistent with small bowel obstruction. Contrast failed to pass through the small bowel loops to the colon by 5 hours. An NG tube is seen in the stomach. A spinal stimulation device i s seen in the mid thoracic spine. IMPRESSION: Findings are consistent with bowel obstruction.
[2018-09-17] MEDS ORDERED: Piperacillin/Tazobactam 3.375 GM in Sodium Chloride 0.9% 100 ML IVPB SCH (14:45)
[2018-09-17] MEDS ORDERED: Acetaminophen 1,000 MG in Premix Bag 1 BAG IVPB SCH (14:45)
[2018-09-17] MEDS ORDERED: Ketorolac Tromethamine 30 MG/ML VIAL IVP SCH (14:45)
--- NOTE | 2018-09-17 18:24 | PRG ---
DATE OF SERVICE: 09/17/2018 SUBJECTIVE: Ms. Desouza has 97.6 degrees, 100 heart rate, blood pressure 105/67. This morning, her white count was 8 and hemoglobin 12. Basic metabolic profile stable. Sodium remains 133. Chronic hyponatremia. OBJECTIVE: LUNGS: Clear to auscultation. CARDIAC: Regular rhythm without murmur or gallop. ABDOMEN: Soft, nondistended, non-tympanitic, nontender. Small-bowel follow-through reveals a bowel obstruction. She has not had any bowel movements. ASSESSMENT AND PLAN: 1. Small bowel obstruction secondary to peritoneal adhesions. Plan laparoscopy, possible open lysis of adhesions, release of bowel obstruction. 2. Exposed spinal stimulator. I have spoken with her pain management doctor in [place], and plan is to remove her spinal stimulator due to the open pocket exposed. She states that they have been having problem programing it and it has not worked right since it was placed. 3. Chronic hyponatremia. Job ID: [id number]
[2018-09-17] MEDS: Enoxaparin Sodium 40 MG/0.4 ML SYRINGE SC SCH (20:45)
[2018-09-18] MEDS: Morphine 4 MG/ML VIAL SLOW IVP PRN ×2 (03:32→08:33)
[2018-09-18] MEDS: Pantoprazole 40 MG VIAL IVP SCH (08:33)
--- NOTE | 2018-09-18 09:39 | PRG ---
DATE OF SERVICE: 09/18/2018 SUBJECTIVE: Carolyn Desouza is an 87-year-old female, scheduled for laparoscopic, possible laparotomy for bowel obstruction. She also has exposed pain stimulator, right flank, lower lumbar area, and I have talked to her pain management doctor in [place], and we will plan to remove that as long as well as the stimulator wires. The patient understands the risks and benefits, consents. Questions answered. Job ID: [id number]
[2018-09-18] MEDS ORDERED: Ketorolac Tromethamine 30 MG/ML VIAL ONE (11:10)
[2018-09-18] MEDS ORDERED: Sodium Chloride 0.9% 100 ML ONE (11:10)
[2018-09-18] MEDS ORDERED: Piperacillin/Tazobactam 3.375 GM VIAL ONE (11:10)
[2018-09-18] MEDS: Sodium Chloride 0.9% 1,000 ML IV SCH (12:26)
[2018-09-18] MEDS ORDERED: Bupivacaine HCl 0.5%/Epinephrine 1:200,000/PF 30 ml Vial ONE (14:26)
[2018-09-18] MEDS ORDERED: Fentanyl 100 MCG/2 ML VIAL ONE ×3 (14:33→17:12)
[2018-09-18] MEDS ORDERED: Famotidine/PF 20 mg/2ml Vial ONE (14:33)
[2018-09-18] MEDS ORDERED: Bupivacaine/Epinephrine 0.25% 30 ML VIAL ONE (15:36)
[2018-09-18] MEDS ORDERED: Lidocaine 2% PF 5 ML VIAL ONE (15:36)
[2018-09-18] MEDS ORDERED: Promethazine HCl 25 MG/ML VIAL IM PRN (16:49)
[2018-09-18] MEDS ORDERED: Meperidine HCl/PF 25 MG/ML VIAL SLOW IVP PRN (16:49)
[2018-09-18] MEDS ORDERED: Promethazine HCl 25 MG/ML VIAL SLOW IVP PRN (16:49)
[2018-09-18] MEDS ORDERED: HYDROmorphone 2 MG/ML VIAL SLOW IVP PRN (16:49)
[2018-09-18] MEDS ORDERED: Ondansetron HCl/PF 4 MG/2 ML Vial IVP PRN (16:49)
[2018-09-18] MEDS ORDERED: Morphine Sulfate 2 MG/ML SYRINGE SLOW IVP PRN (16:49)
[2018-09-18] MEDS ORDERED: PACU-Morphine 4MG/ML VIAL SLOW IVP PRN (16:49)
[2018-09-18] MEDS ORDERED: traMADol HCl 50 MG TAB PO PRN (16:58)
[2018-09-18] MEDS ORDERED: Acetaminophen 500 MG TAB PO PRN (16:58)
[2018-09-18] MEDS ORDERED: Ibuprofen 600 MG TAB PO PRN (16:58)
[2018-09-18] MEDS ORDERED: Acetaminophen 1,000 MG in Premix Bag 1 BAG IVPB PRN (16:58)
[2018-09-18] MEDS: metFORMIN 500 MG TAB PO SCH (17:00)
[2018-09-18] MEDS ORDERED: Non-Formulary Item 1 EACH (Ibandronate Sodium [Boniva] 150 MG) PO SCH (17:00)
[2018-09-18] MEDS ORDERED: HYDROcodone/Acetaminophen 10/325 mg Tablet PO PRN (17:00)
[2018-09-18] MEDS: Ipratropium Bromide 2.5 ml Neb NEB SCH (18:33)
[2018-09-18] MEDS: Ketorolac Tromethamine 30 MG/ML VIAL IVP SCH (18:38)
[2018-09-18] MEDS: Enoxaparin Sodium 40 MG/0.4 ML SYRINGE SC SCH (22:02)
[2018-09-18] MEDS: Gabapentin 400 MG CAP PO SCH (22:03)
--- NOTE | 2018-09-18 23:25 | OP ---
DATE OF PROCEDURE: 09/18/2018 PREOPERATIVE DIAGNOSES: 1. Small bowel obstruction. 2. Eroded spinal stimulator, right flank, lumbar area. POSTOPERATIVE DIAGNOSES: 1. Small bowel obstruction. 2. Eroded spinal stimulator, right flank, lumbar area. 3. Adhesions from prior surgery. PROCEDURES PERFORMED: 1. Laparoscopic lysis of adhesions to release small bowel obstruction. NG tube removed at the end of the procedure. De La Garza catheter removed at the end of the procedure. 2. Removal of spinal stimulator generator and generator battery and wire. ANESTHESIA: General; local, 0.5% Marcaine with epinephrine 30 mL; 0.25% Marcaine with epinephrine, 30 mL; and 2% Xylocaine 10 mL. DESCRIPTION OF PROCEDURE: The patient was taken to the operating room where under general anesthesia in the supine position, De La Garza catheter was placed. Abdomen was clipped of hair, prepared with ChloraPrep and draped in routine fashion. Left lateral subcostal incision made, pneumoperitoneum to 15 mmHg obtained with a Veress needle, replaced with a 5 port and laparoscope inserted. Left lateral abdominal incision made and left lower quadrant lateral abdominal incision was made under laparoscopic visualization and 5 ports placed. Proximal small bowel was dilated. Distal small bowel decompressed. There was some bloody fluid in the abdominal cavity. There was an omental adhesive band causing the bowel obstruction. This was taken down with the LigaSure. The small bowel was then run from the terminal ileum proximally and there were still some attachments that were taken down with the LigaSure completely releasing the obstruction. Small bowel run proximally towards the ligament of Treitz without problems. There was a definite transition zone with distal small bowel small and decompressed and proximal small bowel dilated. Good hemostasis noted as pneumoperitoneum reduced and instruments removed and all skin incisions were approximated with subdermal 4-0 Monocryl and [place] glue applied. The patient was then placed in the left lateral decubitus position and the skin over her lumbar area and the battery generator and spinal stimulator were prepared with ChloraPrep and draped in routine fashion. Incision was made through the midline lumbar incision, carried down through skin and subcutaneous tissue, identifying the spinal stimulator wires and anchors, which were dissected free and the spinal stimulator removed intact along with the anchors excised. Hemostasis gained with the cautery. The wires had been cut towards the generator and the subcutaneous tissue was approximated with 3-0 Monocryl, skin with subdermal 4-0 Monocryl and [place] glue applied. Local anesthetic was infiltrated in the skin and subcutaneous tissue about the operative site. Incision was then made over the spinal generator through the old scar, opening the partially open wound, excising the generator and wires and then excising the capsule, irrigated, again hemostasis with cautery and subcutaneous tissue was approximated with 3-0 Monocryl, skin with subdermal 4-0 Monocryl and [place] glue applied and balance of the local anesthetic was infiltrated into the skin and subcutaneous tissue for postoperative pain control. The patient tolerated the procedure well. Job ID: [id number]
[2018-09-19] MEDS: Ipratropium Bromide 2.5 ml Neb NEB SCH ×3 (00:07→13:36)
[2018-09-19] MEDS: Sodium Chloride 0.9% 1,000 ML IV SCH ×3 (01:02→11:55)
[2018-09-19] MEDS: Ketorolac Tromethamine 30 MG/ML VIAL IVP SCH ×3 (01:04→11:56)
[2018-09-19 05:42] LABS: #Lymphocytes 1.6 thou/uL (1.20-3.40); #Monocytes 0.7 thou/uL (0.11-0.59); #Neutrophils 6.8 thou/uL (1.40-6.50); %Basophils 0.3 % (0.0-1.0); %Eosinophils 0.3 % (0.0-10.0); %Lymphocytes 17.2 % (21.0-51.0); %Monocytes 7.6 % (0.0-10.0); %Neutrophils 74.7 % (42.0-75.0); Hemoglobin 10.8 g/dL (12.0-16.0); Mean Corpuscular HGB CONC 31.8 g/dL (32.0-36.0); Mean Corpuscular Hemoglobin 29.2 pg (27.0-31.0); Mean Corpuscular Volume 91.8 fL (78.0-98.0); Mean Platelet Volume 7.2 fL (7.4-10.4); Platelet Count 319 thou/uL (130-400); Red Blood Cell (RBC) Count 3.72 mill/uL (4.20-5.40); White Blood Cell (WBC) Count 9.1 thou/uL (4.8-10.8)
[2018-09-19 06:04] LABS: Anion Gap 15 mmol/L (10-20); BUN (Urea Nitrogen) 12 mg/dL (9.8-20.1); Calc. Creatinine Clearance 59 mL/min (70-130); Calcium 8.2 mg/dL (7.8-10.44); Carbon Dioxide 25 mmol/L (23-31); Chloride 103 mmol/L (98-107); Estimated GFR-MDRD 75; Glucose 103 mg/dL (83-110); Sodium 140 mmol/L (136-145)
[2018-09-19 06:11] LABS: Potassium 2.7 mmol/L (3.5-5.1)
[2018-09-19] MEDS: Potassium Chloride 20 MEQ TAB PO SCH ×2 (06:28→11:57)
[2018-09-19] MEDS: Gabapentin 400 MG CAP PO SCH ×2 (08:42→15:44)
[2018-09-19] MEDS: metFORMIN 500 MG TAB PO SCH (08:42)
[2018-09-19] MEDS: Pantoprazole 40 MG VIAL IVP SCH (08:44)
[2018-09-19] MEDS ORDERED: Lisinopril 20 MG TAB PO SCH (09:00)
[2018-09-19] MEDS ORDERED: Atenolol 50 MG TAB PO SCH (09:00)
[2018-09-19] MEDS ORDERED: Hydrochlorothiazide 25 MG TAB PO SCH (12:00)
--- NOTE | 2018-09-19 13:55 | PRG ---
DATE OF SERVICE: 09/19/2018 SUBJECTIVE: Carolyn Desouza is doing well. She underwent laparoscopic adhesiolysis, removal of pain stimulator due to skin erosion. There is no evidence of cellulitis or infection at this time. She is tolerating her diet and feels much better. Does not have any significant abdominal pain. She has passed flatus. OBJECTIVE: VITAL SIGNS: Temperature 98.4 degrees, pulse 72, blood pressure 131/75. LUNGS: Clear to auscultation. CARDIAC: Regular rate and rhythm without murmur or gallop. ABDOMEN: Soft. Bowel sounds present. Nontender. Surgical wound looks good. LABORATORY DATA: White count 9, hemoglobin 10.8. Basic metabolic profile normal. Potassium 2.7. She was given a dose of potassium this morning and at noon. We will recheck her potassium at 3:00 p.m. ASSESSMENT AND PLAN: 1. Status post removal of pain pump stimulator right flank and wires lumbar incision. Wounds look good. 2. Status post laparoscopic adhesiolysis, with passing flatus, tolerating her diet. We will plan on discharge home. Resume home medications. She has hydrocodone at home. We will give her Ultram to supplement her needs and take Tylenol and Advil otherwise. She will follow up with her pain doctor in [place]. Job ID: [id number]
[2018-09-19 15:45] VITALS: BP 159/84; TEMP 98.7
--- NOTE | 2018-09-19 16:53 | DIS ---
DATE OF ADMISSION: 09/16/2018 DATE OF DISCHARGE: 09/19/2018 DISCHARGE DIAGNOSES: 1. Bowel obstruction secondary to adhesions. 2. Chronic back pain, status post lumbar surgery and subsequent spine stimulator placed by Pain Management physician in [place]. 3. Erosion of pain stimulator with exposed pain stimulator without evident infection. 4. Diabetes mellitus. 5. Hypertension. 6. Hyperlipidemia. 7. Chronic use of hydrocodone. 8. Mild emphysema. 9. Tobacco cessation. HOME MEDICATIONS: Metformin 500 b.i.d., Incruse Ellipta inhaler daily, omeprazole 20 mg a day, lisinopril 40 mg a day, Boniva 150 mg q.30 days, hydrochlorothiazide 25 mg a day; [place] 10/325 for chronic low back pain, prescribed by Pain Management; gabapentin 800 mg t.i.d., and atenolol 50 mg p.o. daily. HISTORY: An 87-year-old female, who is independent, has a pain doctor, who has placed a pain stimulator for chronic pain refractory to lumbar surgery. They have had been having problems programming this. On admission to the hospital, it was noted by the nurses that the pain stimulator incision had opened and the pain generator was exposed. There was no evidence of infection. There is no fever. No cellulitis. No purulent drainage. I have communicated with her [place] pain medication management doctor and he agreed with my recommendation that the pain pump be removed along with the spinal wires. The patient has had chronic abdominal pain, obstructive symptoms since July, culminating in complete bowel obstruction. She is admitted, had an NG tube placed, had a significant output, underwent small-bowel follow-through revealing a complete bowel obstruction, did not improve by the next morning. She was taken to the operating room for laparoscopic adhesiolysis, releasing the single adhesive band adherent in the pelvis, releasing the bowel obstruction, small bowel run from the cecum proximally to the ligament of Treitz and no other adhesions noted. The patient underwent removal of her pain stimulator. Postoperatively, she did well with resolution of her pain, tolerating her diet. She has been discharged home with her home medications and to resume a diabetic diet and she has [place] at home should she need it and I prescribed Ultram if Tylenol or Advil did not surpass. Diet and activity as tolerated. No activity restrictions. Job ID: [id number]
[2018-09-23] MEDS ORDERED: Ibuprofen 600 MG TAB PO PRN (23:59)
== END 2018-09-19 16:07 | disposition home or self-care (01) | DRG 336 ==
LOC: ERS 07:39 → SURG A 10:22
PROVIDERS: ADMIT Specialist; ATTEND Specialist
PROC: 0DN84ZZ Release Small Intestine, Percutaneous Endoscopic Approach (ICD-10-PCS; principal; 2018-09-18)
PROC: 0JPT0MZ Removal of Stimulator Generator from Trunk Subcutaneous Tissue and Fascia, Open Approach (ICD-10-PCS; 2018-09-18)
DX: K56.52 Intestinal adhesions [bands] with complete obstruction (principal); T85.193A Other mechanical complication of implanted electronic neurostimulator, generator, initial encounter; E87.1 Hypo-osmolality and hyponatremia; I10 Essential (primary) hypertension; E78.5 Hyperlipidemia, unspecified; J43.9 Emphysema, unspecified; E11.40 Type 2 diabetes mellitus with diabetic neuropathy, unspecified; Z96.9 Presence of functional implant, unspecified; F17.210 Nicotine dependence, cigarettes, uncomplicated; Y83.1 Surgical operation with implant of artificial internal device as the cause of abnormal reaction of the patient, or of later complication, without mention of misadventure at the time of the procedure; Z90.49 Acquired absence of other specified parts of digestive tract; Z88.2 Allergy status to sulfonamides; Z90.710 Acquired absence of both cervix and uterus; Z98.890 Other specified postprocedural states
CPT/HCPCS: 36415; 36416; 71045; 74018; 74022; 74250; 80048; 85025; 94640; 96360; C9113; J0131; J0360; J0670; J1650; J1885; J2001; J2270; J2405; J2543; J3010; J3490; Q9963; S0028